=== PATIENT | male | born 1945 | race Caucasian/White ===

== ENCOUNTER 2020-05-15 06:30 | Outpatient (CLI) | payer MEDICARE, OTHER ==
[2020-05-15 11:31] LABS: Hemoglobin 17.1 g/dL (14.0-18.0); Mean Corpuscular HGB CONC 34.7 g/dL (32.0-36.0); Mean Corpuscular Hemoglobin 33.5 pg (27.0-31.0); Mean Corpuscular Volume 96.5 fL (78.0-98.0); Mean Platelet Volume 8.5 fL (7.4-10.4); Platelet Count 206 thou/uL (130-400); RBC Distribution Width 11.7 % (11.5-14.5); Red Blood Cell (RBC) Count 5.11 mill/uL (4.70-6.10); White Blood Cell (WBC) Count 8.6 thou/uL (4.8-10.8)
[2020-05-15 11:36] LABS: Bacteria/HPF None Seen HPF (None Seen); Bilirubin Negative (Negative); Blood, Urine Negative (Negative); Clarity Clear (Clear); Glucose, Urine (Dipstick) Normal (Negative); Leukocyte Negative Leu/uL (Negative); Nitrite Negative (Negative); Protein, Urine (Dipstick) Negative (Neg-Trace); RBC/HPF 0-3 HPF (0-3); Squamous Epithelial None Seen HPF (0-3); Urobilinogen Normal mg/dL (Less than 2); WBC/HPF 0-3 HPF (0-3)
[2020-05-15 12:03] LABS: Anion Gap 14 mmol/L (10-20); BUN (Urea Nitrogen) 17 mg/dL (8.4-25.7); Calc. Creatinine Clearance 0 mL/min (70-130); Calcium 9.8 mg/dL (7.8-10.44); Carbon Dioxide 22 mmol/L (23-31); Chloride 105 mmol/L (98-107); Estimated GFR-MDRD 73; Glucose 182 mg/dL (83-110); Potassium 4.3 mmol/L (3.5-5.1); Sodium 137 mmol/L (136-145)
[2020-05-16 11:32] LABS: SARS-CoV-2 MS2 Positive; SARS-CoV-2 N Gene Negative; SARS-CoV-2 S Gene Negative; SARS-CoV-2 orf1ab Negative
== END 2020-05-15 06:31 | disposition home or self-care (01) ==
LOC: LABBT 06:30
PROVIDERS: ATTEND Urology
DX: Z01.812 Encounter for preprocedural laboratory examination (principal); Z11.59 Encounter for screening for other viral diseases; N40.0 Benign prostatic hyperplasia without lower urinary tract symptoms
CPT/HCPCS: 80048; 81001; 85027; 87086; U0003; 87635

== ENCOUNTER 2020-05-19 09:03 | Observation (INO) | payer MEDICARE ==
[2020-05-14 09:58] VITALS: BMI 30.9
[2020-05-19] MEDS ORDERED: Levofloxacin 500 mg/D5W 100 ml Premix Bag ONE (09:33)
[2020-05-19] MEDS ORDERED: B & O ONE (09:40)
[2020-05-19] MEDS ORDERED: Fentanyl 100 MCG/2 ML VIAL ONE (09:43)
[2020-05-19] MEDS ORDERED: Succinylcholine Chloride 20 MG/ML 10 ml SYRINGE FS ONE (10:32)
[2020-05-19] MEDS ORDERED: Rocuronium Bromide 10 MG/ML (10ML VIAL) ONE (10:32)
[2020-05-19] MEDS ORDERED: Lidocaine 1% PF 5 ML VIAL ONE (10:32)
[2020-05-19] MEDS ORDERED: Glycopyrrolate 0.2 MG/ML 5 ML SYRINGE ONE (10:32)
[2020-05-19] MEDS ORDERED: PROPOFOL 200 MG/20 ML VIAL ONE (10:32)
[2020-05-19] MEDS: Sodium Chloride 0.9% 1,000 ML IV SCH (12:00)
[2020-05-19] MEDS ORDERED: Zolpidem Tartrate 5 MG TAB PO PRN (12:08)
[2020-05-19] MEDS ORDERED: Oxybutynin 5 MG TAB PO PRN (12:08)
[2020-05-19] MEDS ORDERED: hydrALAZINE 20 MG/ML VIAL SLOW IVP PRN (12:08)
[2020-05-19] MEDS ORDERED: Gabapentin 300 MG CAP PO PRN (12:08)
[2020-05-19] MEDS ORDERED: Morphine 2 MG/ML SYRINGE SLOW IVP PRN (12:08)
[2020-05-19] MEDS ORDERED: diphenhydrAMINE 50 MG/ML VIAL IVP PRN (12:08)
[2020-05-19] MEDS ORDERED: Ondansetron PF 4 MG/2 ML Vial IVP PRN (12:08)
--- NOTE | 2020-05-19 14:35 | OP ---
DATE OF PROCEDURE: 05/19/2020 PREOPERATIVE DIAGNOSIS: Enlarged prostate with lower urinary tract symptoms. POSTOPERATIVE DIAGNOSIS: Enlarged prostate with lower urinary tract symptoms. PROCEDURE PERFORMED: Transurethral vaporization of prostate. ANESTHESIA: General. COMPLICATIONS: None. ESTIMATED BLOOD LOSS: Minimal. SPECIMENS: None. DESCRIPTION OF PROCEDURE: After informed consent, the patient was taken to the operating room, transferred to the table under his own power. Anesthesia was established. A time-out was performed, showing the correct patient, site, and procedure. Preoperative antibiotics were administered. He was prepped and draped in the lithotomy position. 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 The bladder was then entered noting mild trabeculation without mucosal abnormalities. Both ureters were normal in appearance. I then used the VaporTrode/PlasmaButton to resect the regrowth adenoma of the left lobe from the verumontanum to the bladder neck. Hemostasis was then achieved. The bladder was drained and the prostatic fossa was re-examined noting an excellent channel with no further obstruction or active bleeding. The scope was withdrawn, and a 20-Kittitian three-way catheter placed with 30 mL instilled in the balloon. This connected to bag drainage and continuous bladder irrigation. The patient was then transferred back to his hospital bed and taken to PACU in stable condition, where he will be admitted overnight for CBI. Job ID: [id number]
[2020-05-19] MEDS: HYDROcodone/Acetaminophen 5/325 mg Tablet PO PRN (20:05)
[2020-05-19] MEDS: Docusate 100 MG CAP PO SCH (20:05)
[2020-05-19] MEDS: Famotidine/PF 20 mg/2ml Vial SLOW IVP SCH (20:05)
[2020-05-20] MEDS: Sodium Chloride 0.9% 1,000 ML IV SCH ×2 (02:02→06:09)
[2020-05-20 03:42] VITALS: TEMP 98.2
[2020-05-20] MEDS: HYDROcodone/Acetaminophen 5/325 mg Tablet PO PRN (06:08)
[2020-05-20] MEDS: Docusate 100 MG CAP PO SCH (07:54)
[2020-05-20] MEDS: Famotidine/PF 20 mg/2ml Vial SLOW IVP SCH (07:54)
[2020-05-20 08:07] VITALS: BP 125/72
--- NOTE | 2020-05-20 14:40 | DIS ---
DATE OF ADMISSION: 05/19/2020 DATE OF DISCHARGE: 05/20/2020 CHIEF COMPLAINT: Lower urinary tract symptoms due to enlarged prostate. FINAL DIAGNOSES: Lower urinary tract symptoms due to enlarged prostate. HOSPITAL COURSE: The patient underwent uncomplicated transurethral vaporization of the prostate. He was maintained with CBI overnight, which remained clear. The following morning, CBI was turned off with urine remaining clear without it. He was tolerating diet and having no pain. At that point, he was deemed stable for discharge home. DISCHARGE ACTIVITY: As tolerated. DISCHARGE MEDICATIONS: Resume all home medications. Postop medications include Bactrim, oxybutynin, tramadol, ibuprofen. FOLLOWUP PLAN: Next Monday for void trial. Job ID: [id number]
== END 2020-05-20 09:56 | disposition home or self-care (01) ==
LOC: SDC 09:03 → SURG A 09:58 → SDC 12:09 → SURG A 12:09
PROVIDERS: ADMIT Urology; ATTEND Urology
PROC: 0V507ZZ Destruction of Prostate, Via Natural or Artificial Opening (ICD-10-PCS; principal; 2020-05-19)
DX: D29.1 Benign neoplasm of prostate (principal); N32.89 Other specified disorders of bladder; R35.0 Frequency of micturition; R39.15 Urgency of urination; R39.12 Poor urinary stream; G47.30 Sleep apnea, unspecified; Z79.899 Other long term (current) drug therapy
CPT/HCPCS: 96361; 96374; 96376; G0378; J1956; J2001; J2704; J3010; S0028

== ENCOUNTER 2021-01-06 15:30 | Outpatient (CLI) | payer MEDICARE ==
--- NOTE | 2021-01-06 16:03 | ULT ---
US Renal Bilateral STANDARD: 01/06/2021 3:32 PM CLINICAL HISTORY: Kidney stones and ureteral stones. STUDY: Renal ultrasound COMPARISON: None. FINDINGS: Right kidney: Echogenicity: Normal. Masses/cysts: None. Hydronephrosis: None. Calcifications: None. Length: 11.1 cm Left kidney: Echogenicity: Normal. Masses/cysts: None. Hydronephrosis: None. Calcifications: None. Length: 12.0 cm Limited visualization of the urinary bladder is unremarkable. Both ureteral jets were visualized. Min imal post void residual. IMPRESSION: Unremarkable renal ultrasound
== END 2021-01-06 15:31 | disposition home or self-care (01) ==
LOC: BICULT 15:30
PROVIDERS: ATTEND Urology
DX: N20.1 Calculus of ureter (principal)
CPT/HCPCS: 76770